=== PATIENT | female | born 1970 | race Caucasian/White ===

== ENCOUNTER 2018-02-12 20:02 | Emergency (ER) | payer OTHER ==
[~2018-02-12] VITALS: Ht 170.2 cm; Wt 90.9 kg
[2018-02-12 20:05] VITALS: BP 131/67; TEMP 98.5
[2018-02-12] MEDS ORDERED: HYZAAR 50-12.1 UDTAB PO (20:48)
[2018-02-12] MEDS ORDERED: ESTRACE 1MG1 MG/TAB PO (20:49)
[2018-02-12] MEDS ORDERED: ROBAXIN 50500 MG/TAB PO (20:50)
[2018-02-12] MEDS ORDERED: NAPROSYN500 MG PO (20:50)
[2018-02-12 20:51] LABS: BASO % 0.5 % (0.0-2.0); EOS # 0.2 (0.0-0.7); EOS % 2.1 % (0-4.0); GRAN # 3.6 (1.4-6.5); GRAN % 48.3 % (42.2-75.2); HEMATOCRIT 42.4 % (37.0-47.0); HEMOGLOBIN 14.1 g/dl (12.5-16.0); LYMPH % 39.4 % (20.0-51.0); MEAN CELL VOLUME 85 fl (80.0-100.0); MEAN CORPUSCULAR HEMOGLOBIN 28 pg (27.0-31.0); MEAN CORPUSCULAR HGB CONC 33 g/dl (33.0-37.0); MONO # 0.7 (0.1-0.6); MONO % 9.4 % (1.7-9.3); PLATELET COUNT 294 K/mm3 (130-400); RED BLOOD COUNT 5.02 M/mm3 (4.10-5.30); REDCELL DISTRIBUTION WIDTH-CV 14.2 % (11.5-14.5)
[2018-02-12 22:37] VITALS: PULSE 78
== END 2018-02-12 22:35 | disposition home or self-care (01) ==
LOC: COL.ER 20:02
PROVIDERS: Physician Assistant
DX: M25.471 Effusion, right ankle (principal); W22.8XXA Striking against or struck by other objects, initial encounter